=== PATIENT | male | born 1960 | race Caucasian/White ===

== ENCOUNTER → 2016-08-18 | Outpatient (CLI) | payer OTHER ==
[2016-08-18 08:12] LABS: ALKALINE PHOSPHATASE 62 U/L (45-117); BILIRUBIN, TOTAL 0.8 mg/dl (0.2-1.0); BUN 18 mg/dl (7-24); CARBON DIOXIDE 26 mmol/L (21-32); CHLORIDE 108 mmol/L (98-107); CHOLESTEROL 104 mg/dL (<200); EST GLOM FILT AFRICAN AMERICAN > 60 ml/min; GLUCOSE 160 mg/dL (65-99); HDL CHOLESTEROL 20 mg/dl (40-60); LDL CHOLESTEROL 6 mg/dL (9-159); POTASSIUM 4.2 mmol/L (3.5-5.1); SGOT/AST 38 IU/L (3-35); SGPT/ALT 77 U/L (12-78); SODIUM 143 mmol/L (136-145); TOTAL PROTEIN 7.9 gm/dL (6.4-8.2); TRIGLYCERIDES 390 mg/dl (<150); VLDL CHOLESTEROL 78 mg/dL (6-40)
[2016-08-18 08:20] LABS: HEMOGLOBIN A1c 8.4 % (4.8-5.6)
== END | disposition home or self-care (01) ==
LOC: LAB 07:09
PROVIDERS: Internal Medicine Endocrinology, Diabetes & Metabolism
DX: E11.65 Type 2 diabetes mellitus with hyperglycemia (principal); E29.1 Testicular hypofunction

== ENCOUNTER → 2016-12-22 | Outpatient (CLI) | payer OTHER ==
[2016-12-22 08:03] LABS: ALBUMIN 3.7 gm/dl (3.1-4.5); ALKALINE PHOSPHATASE 57 U/L (45-117); BILIRUBIN, TOTAL 0.5 mg/dl (0.2-1.0); BUN 11 mg/dl (7-24); CARBON DIOXIDE 27 mmol/L (21-32); CHLORIDE 105 mmol/L (98-107); CHOLESTEROL 140 mg/dL (<200); EST GLOM FILT AFRICAN AMERICAN > 60 ml/min; GLUCOSE 180 mg/dL (65-99); HDL CHOLESTEROL 19 mg/dl (40-60); HEMOGLOBIN A1c 8.1 % (4.8-5.6); POTASSIUM 4.4 mmol/L (3.5-5.1); SGOT/AST 35 IU/L (3-35); SGPT/ALT 68 U/L (12-78); SODIUM 139 mmol/L (136-145); TOTAL PROTEIN 7.8 gm/dL (6.4-8.2); TRIGLYCERIDES 544 mg/dl (<150)
== END ==
LOC: LAB 06:56
PROVIDERS: Internal Medicine Endocrinology, Diabetes & Metabolism
DX: E11.65 Type 2 diabetes mellitus with hyperglycemia (principal)

== ENCOUNTER → 2017-03-19 | Outpatient (CLI) | payer OTHER | END | disposition home or self-care (01) | LOC: CT 09:34 | DX: N20.0 Calculus of kidney (principal); K80.20 Calculus of gallbladder without cholecystitis without obstruction; K76.0 Fatty (change of) liver, not elsewhere classified ==

== ENCOUNTER 2018-09-19 09:42 | Inpatient (IN) | payer OTHER ==
[~2018-09-19] VITALS: Ht 187.9 cm; Wt 147.0 kg
[2018-09-19] VITALS (15 sets, daily range): BP systolic 86–140; BP diastolic 36–86
--- NOTE | ~2018-09-19 | DS ---
[place], [place] DISCHARGE SUMMARY [id number] #: [id number] ROOM: 411 DOCTOR: SEBAS GARNICA MD BIRTHDATE: [birth year] DOS: 09/21/2018 DIAGNOSES: 1. New onset atrial fibrillation with rapid ventricular response, converted to sinus rhythm. 2. Coronary artery disease with history of stent placement. 3. Type 2 diabetes mellitus, insulin-dependent. 4. Mixed hyperlipidemia. HOSPITAL COURSE: This patient is a 57-year-old. It was noted that his heart rate was in the 150s while he was checking his blood pressure, called Dr. Bajwa who advised that he be sent to the Emergency Room. In the ER, he was found to be in new onset AFib with rapid ventricular response, given IV Cardizem and admitted. After admission, he had been continued on IV Cardizem, IV heparin protocol. He did become hypotensive. Dr. Gilliam did cut back on the Coreg and gave him IV fluids. His IV heparin has been discontinued and switched to Eliquis. He has converted to sinus rhythm and so the plan is to discharge him to home today. Eliquis is switched to Xarelto, which could be cheaper to get it from the hospital pharmacy. He is stable. He is advised to go back to work on Wednesday. His blood sugars are controlled. The patient feels olanzapine was responsible for his symptomatology. He has read side effects online and he is advised not to take the medication and discuss with his PCP about it. DISCHARGE MEDICATIONS: Flecainide 50 b.i.d., Coreg 6.25 twice a day, Xarelto 20 daily, testosterone IM injections once a month on Wednesdays, insulin sliding scale as well as pump, sertraline 50 daily, telmisartan 80 mg daily, simvastatin 80 daily. SEBAS GARNICA MD CM:DISCHARG [id number] SEBAS GARNICA MD 09/21/18 1445 interface
--- NOTE | ~2018-09-19 | WRIGHTHP ---
[place], [place] PATIENT HISTORY AND PHYSICAL EXAM [id number] UN[facility] #: [id number] ROOM: 411 DOCTOR: SEBAS GARNICA MD BIRTHDATE: [birth year] DOS: 09/19/2018 HISTORY OF PRESENT ILLNESS: The patient is 57 years old, not known to me. The patient has known history of coronary artery disease, was out of town when he was checking his blood pressure and noted his heart rate is 151. He researched thought it was olanzapine causing his heart rate issues, but when he came back, he called Dr. Gilliam's office who advised that he go to the Emergency Room where he was seen and was found to be in rapid AFib, which is a new onset. He denies having any chest pains or palpitations, does not have any fever or chills, does not have any abdominal pain, nausea, any emesis. Even when his heart rate was 150, he did not experience any symptoms at all. PAST MEDICAL HISTORY: Significant for: 1. Coronary artery disease with history of 2 stents placement about 7 years ago. 2. Type 2 diabetes mellitus, insulin-dependent. MEDICATIONS: Medications that he is on are Plavix, carvedilol, sertraline, simvastatin, telmisartan, testosterone, and insulin pump. SOCIAL HISTORY: Nonsmoker and does not use any alcohol. He is . PHYSICAL EXAMINATION: GENERAL: He is awake and alert and oriented, in no distress. VITAL SIGNS: Graphic trend shows a pressure of 120/50, pulse of 68, respirations 20, temperature 97.4. LUNGS: Diminished breath sounds. Clear. HEART: Irregular. ABDOMEN: Obese, soft, nontender. EXTREMITIES: Without any edema. LABORATORY DATA: EKG showed AFib, rhythm is still AFib this morning, heart rate has slowed down since yesterday. Troponin 1.010 and 1.140. ASSESSMENT AND PLAN: 1. New onset atrial fibrillation with rapid ventricular response. The patient was placed on IV Cardizem and IV heparin protocol. Dr. Gilliam was consulted and he feels that the patient would be a candidate for chronic anticoagulation. He is planning to do a cardioversion tomorrow if he does not convert. 2. Benign hypertension, controlled. 3. Coronary artery disease with elevated enzymes, most likely rate related. This is not a myocardial infarction. 4. Type 2 diabetes mellitus, insulin-dependent. Blood sugars are being checked and they are controlled. [place], [place] PATIENT HISTORY AND PHYSICAL EXAM NAME: [facility] [id number] UNIT #: [id number] ROOM: [facility] DOCTOR: SEBAS GARNICA MD BIRTHDATE: [birth year] SEBAS GARNICA MD CM:HISPHYS:PATIENT HISTORY AND PHYSICAL EXAMINATION [id number] ESBAS GARNICA MD 09/27/18 0758 interface
--- NOTE | ~2018-09-19 | PR ---
[place], [place] PROGRESS NOTE [id number] #: [id number] ROOM: 411 DOCTOR: JUANY LORA MD BIRTHDATE: [birth year] DOS: 09/21/2018 SUBJECTIVE: He is feeling well. He is not short of breath and slept well without any difficulty breathing and no dizziness or lightheaded when he stood up this morning. The last couple of days, blood pressure had been running rather low. He was on carvedilol and diltiazem, both of these were held yesterday. He had atrial flutter with rate that was difficult to control. Yesterday, he reverted to normal sinus rhythm and once that happened, he was started on flecainide 50 mg b.i.d., which he has tolerated nicely. PHYSICAL EXAMINATION: GENERAL: The patient is very pleasant, alert, oriented. He is a very large man. Complexion is fine. He is not tachypneic. VITAL SIGNS: Pulse is regular at 76 beats per minute, blood pressure is 107/62. NECK: JVP is normal. LUNGS: He is quite crackles and rhonchi in both lungs with reduced breath sound, but only trace edema in the lower extremities. LABORATORY DATA: Monitor shows normal sinus rhythm. An ECG done this morning showed normal sinus rhythm at 75 beats per minute with normal QTc of 447 milliseconds. IMPRESSION: This patient had atrial flutter with rapid rate, in sinus rhythm returned yesterday and he is tolerating flecainide fine and he was started on Eliquis as well. The neck blood pressure, which is asymptomatic today. RECOMMENDATIONS: 1. The patient should continue flecainide 50 b.i.d., dose will be increased should he revert back to atrial flutter. 2. Eliquis/anticoagulation on chronic basis. 3. Dose of carvedilol has been decreased to 6.25 mg b.i.d. and if he ever gets rapid rate, he can take 25 mg tablet to control the rate. 4. Chest x-ray is being done to make sure there is no pulmonary congestion or edema. 5. The patient may be discharged home later this evening with a followup with me in 2-4 weeks. [place], [place] PROGRESS NOTE NAME: HALEY GARCIA UNIT #: [id number] ROOM: 411 DOCTOR: JUANY LORA MD BIRTHDATE: [birth year] JUANY LORA MD CM:PNAMILCAR 0726 20 JUANY LORA MD 09/21/18 2020 interface
--- NOTE | ~2018-09-19 | EKG ---
[place], [place] ELECTROCARDIOGRAM REPORT NAME: HALEY GARCIA UNIT #: [id number] ROOM: 411 DOCTOR: JOSE DRAFT REPORT BIRTHDATE: [address] [facility] Test Date: 2018-09-19 Test Time: 10:02:41 Pat Name: HALEY GARCIA Department: Room: 411 Gender: M Alignment Mechanic: : 1960 Requested By: EUSEBIO GARLAND Order Number: [id number] Reading MD: Pardeep Gilliam MD Measurements Intervals [place] Rate: 151 P: 0 [place]: QRS: -24 QRSD: 88 T: 66 QT: 286 QTc: 454 Interpretive Statements Atrial flutter wirh 2:1 AV conduction Inferior infarct, old Baseline wander in lead(s) V2,V4 Electronically Signed On 09-21-2018 4:03:03 PDT by Pardeep Gilliam MD CM:EKGRPT:ELECTROCARDIOGRAM REPORT [id number] EUSEBIO CHÁVEZ DRAFT REPORT EUSEBIO GARLAND DO
--- NOTE | ~2018-09-19 | PR ---
[place], [place] PROGRESS NOTE NAME[id number] UNIT #: [id number] ROOM: 411 DOCTOR: SEBAS GARNICA MD BIRTHDATE: [birth year] DOS: 09/21/2018 SUBJECTIVE: The patient is doing well, does not have any complaints today. He had converted to sinus rhythm yesterday afternoon. OBJECTIVE: VITAL SIGNS: Blood pressure is 102/64, pulse of 73, respirations 20, temperature 97.5. He did become hypotensive and was given IV fluids. The Coreg dosage has been cut down by Dr. Gilliam this morning. LUNGS: Diminished breath sounds. Clear. HEART: Regular. ABDOMEN: Obese. EXTREMITIES: Without any edema. ASSESSMENT AND PLAN: 1. Hypotension, possibly medication related. Coreg dosage was cut back. Discussed with Dr. Gilliam this morning. 2. New-onset atrial fibrillation with rapid ventricular response, converted to sinus rhythm, on flecainide and we will add Xarelto and Plavix, which has just been discontinued. I advised the patient that he could go back to work on Wednesday and to see his PCP as an outpatient. SEBAS GARNICA MD CM:PNTRANS [id number] SEBAS GARNICA MD 09/22/18 0011 interface
--- NOTE | ~2018-09-19 | EKG ---
[place], [place] ELECTROCARDIOGRAM REPORT NAME: HALEY GARCIA UNIT #: [id number] ROOM: 411 DOCTOR: JOSE DRAFT REPORT BIRTHDATE: [birth year] [facility] Test Date: 2018-09-19 Test Time: 10:41:12 Pat Name: HALEY GARCIA Department: Room: 411 Gender: M Sustainable Products Marketing Manager: Na Millard : 1960 Requested By: EUSEBIO GARLAND Order Number: [id number] Reading MD: Pardeep Gilliam MD Measurements Intervals [place] Rate: 135 P: [place]: QRS: 8 QRSD: 88 T: 23 QT: 349 QTc: 524 Interpretive Statements Atrial flutter Inferior infarct, old Prolonged QT interval Electronically Signed On 09-21-2018 4:03:32 PDT by Pardeep Gilliam MD CM:EKGRPT:ELECTROCARDIOGRAM REPORT [id number] EUSEBIO CHÁVEZ DRAFT REPORT EUSEBIO GARLAND DO
--- NOTE | ~2018-09-19 | EKG ---
[place], [place] ELECTROCARDIOGRAM REPORT NAME: HALEY GARCIA UNIT #: [id number] ROOM: 411 DOCTOR: JOSE DRAFT REPORT BIRTHDATE: [birth year] [facility] Test Date: 2018-09-20 Test Time: 13:22:35 Pat Name: HALEY GARCIA Department: Room: 411 1 Gender: M Shoe Repairer: Na Millard : 1960 Requested By: JUANY LORA Order Number: [id number] Reading MD: Juany Lora MD Measurements Intervals [place] Rate: 71 P: 54 [place]: 187 QRS: -13 QRSD: 87 T: 9 QT: 396 QTc: 431 Interpretive Statements Sinus rhythm Atrial premature complex Abnormal R-wave progression, early transition Inferior infarct, old Baseline wander in lead(s) V1,V2 Electronically Signed On 09-21-2018 4:04:15 PDT by Juany Lora MD CM:EKGRPT:ELECTROCARDIOGRAM REPORT [id number] JUANY GARCIA DRAFT REPORT JUANY LORA MD
--- NOTE | ~2018-09-19 | EKG ---
[place], [place] ELECTROCARDIOGRAM REPORT NAME: HALEY GARCIA UNIT #: [id number] ROOM: 411 DOCTOR: JOSE DRAFT REPORT BIRTHDATE: [birth year] [facility] Test Date: 2018-09-21 Test Time: 06:57:47 Pat Name: HALEY GARCIA Department: Room: 411 1 Gender: M Assurance Engineer: Na Millard : 1960 Requested By: JUANY LORA Order Number: [id number] Reading MD: Juany Lora MD Measurements Intervals [place] Rate: 75 P: 60 [place]: 191 QRS: -17 QRSD: 94 T: 16 QT: 400 QTc: 447 Interpretive Statements Sinus rhythm Atrial premature complex Inferior infarct, old Baseline wander in lead(s) V2 Electronically Signed On 09-29-2018 7:04:12 PDT by Juany Lora MD CM:EKGRPT:ELECTROCARDIOGRAM REPORT [id number] JUANY LORA MD EPIPHANY DRAFT REPORT JUANY LORA MD
--- NOTE | ~2018-09-19 | CON ---
[place], [place] REPORT OF CONSULTATION NAME[id number] UNIT #: [id number] ROOM: 411 DOCTOR: JUANY LORA MD BIRTHDATE: [birth year] DOS: 09/19/2018 HISTORY OF PRESENT ILLNESS: This is a 57-year-old -[place] man with a history of atrial flutter and he has had a burst of palpitations for the last 20+ years. He also has type 2 diabetes mellitus, essential hypertension, and morbid obesity. He has never had a heart attack, heart failure. He has never had a CVA or any peripheral embolization, never had COPD, GERD, or GI bleeding and no kidney problems. Father had brain tumor, but no stroke or coronary artery disease in the family members. I saw him in the office, not long ago for assessment and followup of atrial flutter. He told me that he has a burst of palpitations that lasted only for a few seconds, sometimes a few minutes, and then go away and has never had any persistent episodes. However, he came to the ER because of 5 days of palpitations and the heart rate was run 150. He claims he did not have any breathing difficulty, any chest pain or pressure in the chest, and no loss of consciousness and the swelling of the lower extremity, orthopnea. He did not have any neurological symptoms. He has no nausea, abdominal pain or blood in the stools and no fever, chills, or shivering. He has not had any bleeding from anywhere and is not planning any surgery. HOME MEDICATIONS: Included carvedilol 12.5 mg b.i.d. and clopidogrel 75 mg daily, sertraline 50 mg daily, simvastatin 80 mg daily, telmisartan 80 mg daily, testosterone, cypionate 200 mg IM and insulin. SOCIAL HISTORY: He does not smoke nor does he drink alcoholic beverages. Works night time babysitter and is . PHYSICAL EXAMINATION: GENERAL: This revealed the patient who is a very large, moderately obese, is muscular as well. Temperature is normal. There is no thyromegaly or finger clubbing. He is not cyanotic or jaundiced. He looks well. VITAL SIGNS: Pulse is irregular at 120 beats per minute, blood pressure 129/79. NECK: JVP is normal. AJR is negative. There is no carotid bruit. HEART: There is no cardiomegaly, no murmurs are present. EXTREMITIES: There is no friction rub, has good pedal pulses, and only trace edema in the pretibial areas. RESPIRATORY: Lungs are clear to percussion and auscultation with excellent breath sounds. ABDOMEN: Supple, nontender. LABORATORY DATA: Initial ECG demonstrated atrial flutter with 2:1 AV conduction with ventricular rate of 151. Second ECG while on Cardizem showed a heart rate of 135 beats per minute with clear flutter waves. Chest x-ray was unremarkable. [place], [place] REPORT OF CONSULTATION NAME: HALEY GARCIA UNIT #: [id number] ROOM: 411 DOCTOR: JUANY LORA MD BIRTHDATE: [birth year] Troponin I level was 0.9 and gone up to 1.0. WBC is 7.7, hemoglobin 15.2, sodium 141, potassium 4.2. Renal function is normal. Magnesium 1.9 and lipid profile is excellent with an LDL of 67, total cholesterol of 106, and triglyceride 91. TSH is 2.2, which is normal. IMPRESSION: 1. This patient has had atrial flutter with rapid ventricular rate for 5 days and has not caused any adverse outcome, namely no cardiac decompensation or any embolic complication. 2. His CHADS score is significant because of the presence of hypertension and diabetes mellitus. Therefore, chronic anticoagulation is warranted. 3. The patient is on IV Cardizem dose, which will be increased to control the heart rate regularly and dose of carvedilol is being increased to 20 from 5 mg b.i.d. 4. Hopefully, the heart rate will slow down and he will revert back to normal sinus rhythm. If he does not do so while on heparin, I would like to do electrical cardioversion on Wednesday morning, i.e., day after tomorrow and I had explained the procedure to him and his . They understand. I also discussed this with his nurse. JUANY LORA MD CM:CONSTR:REPORT OF CONSULTATION 1729 09/20/18 0523 interface
--- NOTE | ~2018-09-19 | PR ---
[place], [place] PROGRESS NOTE NAME: [id number] UNIT #: [id number] ROOM: 411 DOCTOR: RAFIQ ALCANTARA MD BIRTHDATE: [birth year] DOS: 09/20/2018 SUBJECTIVE: The patient was seen by Dr. Gilliam yesterday. The patient is in persistent atrial flutter. However, the heart rate is very well controlled. His ejection fraction was preserved. OBJECTIVE: VITAL SIGNS: Blood pressure is 108/60, heart rate is 70, atrial flutter. NECK: Supple, no JVD. LUNGS: Diminished breath sounds. HEART: Sounds are irregularly irregular. LABORATORY DATA: Hemoglobin 15.2, hematocrit 45.7. Last electrolytes were within normal limits. Troponin is 1.140, the patient was seen by Dr. Gilliam probably because of the rapid rate. Echocardiogram was done by Dr. Gilliam, ejection fraction was 60%. IMPRESSION AND PLAN: Atrial flutter, now controlled ventricular response, elevated troponin. The patient knows Dr. Gilliam very well and beta blockers have been increased. If the heart rate is normal, stop the Cardizem drip. The patient rescheduled for an synchronized electrical cardioversion in the morning. RAFIQ ALCANTARA MD CM:PNTRANS [id number] RAFIQ ALCANTARA MD 09/20/18 1013 interface
[2018-09-19 10:01] LABS: BASO % 0.4 % (0.0-1.0); EOS # 0.1 10*3/uL (0.0-0.4); EOS % 1.8 % (1.0-4.0); HEMATOCRIT 45.7 % (42.0-52.0); HEMOGLOBIN 15.2 g/dl (14.0-18.0); LYMPH # 1.4 10*3/uL (1.3-4.4); LYMPH % 18.4 % (27.0-41.0); MEAN CELL VOLUME 90.3 fl (80.0-94.0); MEAN CORPUSCULAR HGB CONC 33.3 g/dl (33.0-37.0); MEAN PLATELET VOLUME 9.9 fl (9.6-12.3); MONO # 0.7 10*3/uL (0.1-1.0); MONO % 9.5 % (3.0-9.0); NEUT # 5.3 10*3/uL (2.3-7.9); NEUT % 69.6 % (47.0-73.0); PLATELET COUNT AUTOMATED 146 10*3/uL (130-400); RED BLOOD COUNT 5.06 10*6/uL (4.50-5.90); RED CELL DISTRI WIDTH 14.6 % (0-14.5); WHITE BLOOD COUNT 7.7 10*3/uL (4.8-10.8)
[2018-09-19 10:17] LABS: ALBUMIN 3.5 gm/dl (3.1-4.5); ALKALINE PHOSPHATASE 58 U/L (45-117); BUN 18 mg/dl (7-24); CHLORIDE 109 mmol/L (98-107); CREATININE 0.96 mg/dL (0.70-1.30); POTASSIUM 4.2 mmol/L (3.5-5.1); SGOT/AST 35 IU/L (3-35); SGPT/ALT 62 U/L (12-78); SODIUM 141 mmol/L (136-145); TOTAL PROTEIN 7.5 gm/dL (6.4-8.2)
[2018-09-19 10:21] LABS: TROPONIN I 0.624 ng/ml (<0.045)
--- NOTE | 2018-09-19 10:21 | NUR ---
DR GARLAND NOTIFIED OF ELEVALED TROP LEVEL. NO NEW ORDERS AT THIS TIME.
--- NOTE | 2018-09-19 10:32 | NUR ---
DR GARLAND VERBALLY ORDERS A 10MG BOLUS OF CARDIZEM BUT NO DRIP.
--- NOTE | 2018-09-19 10:40 | NUR ---
DR GARLAND NOW VERBALLY ORDERS ANOTHER CARDIZEM BOLUS AND THEN A DRIP AT 5MG/HR.
--- NOTE | 2018-09-19 11:39 | NUR ---
AWAITING OPPORTUNITY TO TRANSPORT PT TO FLOOR, PT'S NURSE IS AT LUNCH.
--- NOTE | 2018-09-19 12:00 | NUR ---
A 57, admitted to , under the services of SEBAS Meng MD with a diagnosis of AFIB RVR. Chief complaint is HIGH PULSE READINGS AT HOME ON AUTOMATIC BLOOD PRESSURE MACHINE FOR PAST 5 DAYS. Patient arrived via stretcher from ER. Monitor applied. Initial assessment completed. Vital signs taken and recorded. SEBAS MENG MD notified of admission to the unit. Orders received. See assessment for past medical history, medications and allergies. Patient and/or family oriented to unit. [facility]. Clothing/patient valuable form completed. JAYLIN BLEVINS
[2018-09-19] MEDS ORDERED: SIMVASTATIN80 MG PO (12:20)
[2018-09-19] MEDS ORDERED: CARVEDILOL12.5 MG PO (12:22)
[2018-09-19] MEDS ORDERED: CLOPIDOGREL75 MG PO (12:24)
[2018-09-19] MEDS ORDERED: SERTRALINE HYDR50 MG PO (12:24)
[2018-09-19] MEDS ORDERED: TESTOSTERO200 MG/1 M IM (12:33)
[2018-09-19] MEDS ORDERED: TELMISARTAN80 M1 PO (12:33)
[2018-09-19] MEDS ORDERED: HUMULIN R100 UNIT/1 IJ (12:36)
--- NOTE | 2018-09-19 13:14 | NUR ---
DR. LORA NOTIFIED OF CONSULT AND WILL SEE PATIENT TOMORROW. OBTAINED ORDER TO TITRATE CARDIZEM DRIP UP TO 10ML/HR NEEDED.
[2018-09-19 13:30] LABS: FREE T4 0.97 ng/dl (0.76-1.46)
[2018-09-19 13:34] LABS: TROPONIN I 0.905 ng/ml (<0.045)
[2018-09-19 13:35] LABS: THYROID STIM HORMONE (HS) 2.22 uIU/ml (0.358-4.75)
--- NOTE | 2018-09-19 13:36 | NUR ---
DR. LORA NOTIFIED OF MOST RECENT TROPONIN I RESULT.
--- NOTE | 2018-09-19 15:11 | NUR ---
PTT 24.0. STARTING HEPARIN DRIP VIA LEFT ARM IV HEPLOCK AT 12/UNITS/KG/HR OR 17.6ML/HR AFTER 5,000 UNIT BOLUS. NEXT PTT TO BE DRAWN AT 2100 PER PROTOCOL.
--- NOTE | 2018-09-19 17:05 | NUR ---
DR. LORA IN TO SEE PATIENT RE: PLAN OF CARE AND IS AWARE OF MOST RECENT TROPONIN I RESULT.
--- NOTE | 2018-09-19 17:14 | NUR ---
PER DR. LORA, IF RATE OF AFLUTTER NOT CONTROLLED BY TREATMENT WITH COREG (INCREASED DOSE) AND CARDIZEM DRIP, PATIENT MAY NEED KANE PROCEDURE.
--- NOTE | 2018-09-19 19:25 | NUR ---
PATIENT C/O DIZZINESS. DENIES ANY CHEST PAIN OR PALPITATIONS. MANUAL BP 86/42 HR 177. BS 105.
--- NOTE | 2018-09-19 19:30 | NUR ---
DR LORA CALLED REGUARDING PATIENT'S BP. NEW ORDERS RECEIVED- SEE EMAR.
--- NOTE | 2018-09-19 19:49 | NUR ---
DR LORA CALLED WITH CRITICAL TROPONIN 1.140. NO NEW ORDERS AT THIS TIME.
--- NOTE | 2018-09-19 21:10 | NUR ---
FLUID BOLUS COMPLETE, BP 100/52. NS AT 50CC/HR HUNG ORDERED. WILL CONTINUE TO MONITOR.
--- NOTE | 2018-09-19 22:10 | NUR ---
APTT 30.9- HEPARIN INCREASED TO 14U/KG/HR. APTT ORDERED FOR 0530.
--- NOTE | 2018-09-19 22:10 | NUR ---
APTT 30.9- NO CHANGES TO HEPARIN AT THIS TIME.
[2018-09-20] VITALS (11 sets, daily range): BP systolic 68–120; BP diastolic 42–62
--- NOTE | 2018-09-20 00:25 | NUR ---
24 HR chart check completed.
--- NOTE | 2018-09-20 03:02 | NUR ---
PATIENT RESTING WITH EYES CLOSED BUT STATING HE'S NOT GETTING ANY SLEEP BECAUSE OF LIGHT HEADEDNESS AND NOT BEING COMFORTABLE. REMAINS IN AFLUTTER WITH RATE 90'S-100'S. CARDIZEM, HEPARIN, AND NS CONTINUE RUNNING AT THIS TIME. CALL TRENT WITHIN REACH. WILL CONTINUE TO MONITOR.
--- NOTE | 2018-09-20 05:00 | NUR ---
HR HAS MAINTAINED 70-80 FOR THE LAST HOUR. CARDIZEM IV DRIP DECREASED FROM 10 ML/HR TO 5 ML/HR. WILL MONITOR HEART RATE.
--- NOTE | 2018-09-20 06:30 | NUR ---
APTT 31.1- HEPARIN INCREASED TO 16U/KG/HR PER PROTOCOL. APTT ORDERED 1230.
--- NOTE | 2018-09-20 06:40 | NUR ---
APTT 31.1 - HEPARIN INCREASED TO 14UNITS/KG/HR.
--- NOTE | 2018-09-20 07:05 | NUR ---
RECEIVED CALL FROM DR ALCANTARA. WANTED TO KNOW IF PATIENT IS STILL IN AFLUTTER AND WANTS CARDIOVERSION SCHEDULED FOR TOMORROW (WEDNESDAY) 09/21/18.
--- NOTE | 2018-09-20 08:30 | NUR ---
Mutual Fund Accountant in to talk to patient. Patient states lives at home with his . There are 13 steps in the home. Physician: Dr. Shant Patricio Pharmacy: [facility] [place] Home health services: none Patient's level of ADLs: INDEPENDENT Patient has working utilities: yes DME: none Follow-up physician's appointment after d/c: he prefers to make his own follow up appt after discharge Does patient want to access PORTAL?: no Discharge plan discussed with patient and his who is sitting at the bedside. He lives at home with his . He is independent in his ADLs and ambulation. Discussed home health care services and he denies any home needs at this time. Discussed about having his medications filled here at the hospital. Instructed he would be able to have his medications filled for one year and then he would need to follow up with the resident clinic on the first floor. He verbalized an understanding. When medically stable he will be discharged to home. BURAK MEZA
--- NOTE | 2018-09-20 09:31 | NUR ---
PATIENT C/O EXTREME DIZZINESS; HR AFLUTTER/IRREGULAR RATE 70'S ON CARDIZEM DRIP AT 5ML/HR. PHONED DR. LORA FOR ORDER TO STOP CARDIZEM DRIP AND SCHEDULE KANE W/CARDIOVERSION TOMORROW AT 7AM. CARDIZEM DRIP STOPPED AND PATIENT INFORMED, HER VERBALIZES UNDERSTANDING.
--- NOTE | 2018-09-20 11:01 | NUR ---
HELD AM COZAAR FOR LOW BLOOD PRESSURES, SEE VITAL SIGNS FLOW SCREEN.
--- NOTE | 2018-09-20 12:56 | NUR ---
ARRHYTHMIA HAS CONVERTED FROM AFLUTTER TO NSR 70'S/REGULAR. PATIENT C/O DIZZINESS AND MANUAL BLOOD PRESSURE 68/42. DR. LORA NOTIFIED AND ORDER OBTAINED FOR IVF BOLUS OF NSS X 1 LITER AND ENCOURAGE PO FLUID INTAKE.
--- NOTE | 2018-09-20 19:00 | NUR ---
PATIENT UP IN CHAIR, REPORTS NO LONGER DIZZY.
--- NOTE | 2018-09-20 20:23 | NUR ---
PATIENT RESTING IN CHAIR AT BEDSIDE WITH VISITOR AT BEDSIDE. NO NEEDS MADE. DENIES CHEST PAIN, DIZZINESS, OR SHORTNESS OF BREATH. BED IN LOWEST POSITION, CALL LIGHT IN REACH
--- NOTE | 2018-09-20 21:56 | NUR ---
DR ALCANTARA COVERING FOR DR LORA. MADE AWARE OF PATIENT'S BLOOD PRESSURE BEING LOW AND DUE FOR COREG. ALSO MADE AWARE OF NEW AFIB RVR. DR ALCANTARA STATES TO HOLD THE BLOOD PRESSURE MEDICATIONS TONIGHT.
--- NOTE | 2018-09-20 22:43 | NUR ---
BLOOD SUGAR CHECK 119. PATIENT STATES HE DOES NOT BOLUS WITH THIS CHECK.
[2018-09-21] VITALS: BP 109/56
--- NOTE | 2018-09-21 01:33 | NUR ---
24 HR chart check completed.
--- NOTE | 2018-09-21 02:54 | NUR ---
PATIENT RESTING IN CHAIR AT BEDSIDE WITH EYES CLOSED. RESPS EASY AND REGULAR. BED IN LOWEST POSITION, CALL LIGHT IN REACH
[2018-09-21 04:00] VITALS: BP 107/62
--- NOTE | 2018-09-21 06:39 | NUR ---
PATIENT'S BLOOD SUGAR CHECK 65. ORANGE JUICE AND PEARS GIVEN
[2018-09-21 07:59] VITALS: BP 102/64
[2018-09-21] MEDS ORDERED: HUMULIN R100 UNIT/1 IJ (08:32)
[2018-09-21] MEDS ORDERED: XARE20MG PO (08:32)
[2018-09-21] MEDS ORDERED: TELMISARTAN80 M1 PO (08:32)
[2018-09-21] MEDS ORDERED: SERTRALINE HYDR50 MG PO (08:32)
[2018-09-21] MEDS ORDERED: CARVEDILOL6.25 MG PO (08:32)
[2018-09-21] MEDS ORDERED: SIMVASTATIN80 MG PO (08:32)
[2018-09-21] MEDS ORDERED: FLECAINIDE ACE100 M1 PO (08:32)
--- NOTE | 2018-09-21 09:20 | NUR ---
Discharge instructions reviewed with patient/family. Patient receptive and verbalizes understanding. Follow-up care arranged. Written instructions given to patient/family. DONA NEWMAN
== END 2018-09-21 09:20 | disposition home or self-care (01) | DRG 309 ==
LOC: ED 09:42 → 4E 11:31 → EDHOLD 11:31 → 4E 11:36
PROVIDERS: Emergency Medicine; ADMIT Internal Medicine
DX: I48.91 Unspecified atrial fibrillation (principal); Z68.41 Body mass index [BMI] 40.0-44.9, adult; I10 Essential (primary) hypertension; I48.92 Unspecified atrial flutter; I25.10 Atherosclerotic heart disease of native coronary artery without angina pectoris; E11.9 Type 2 diabetes mellitus without complications; E66.01 Morbid (severe) obesity due to excess calories; I95.9 Hypotension, unspecified; E78.2 Mixed hyperlipidemia; Z79.4 Long term (current) use of insulin; Z95.5 Presence of coronary angioplasty implant and graft; Z80.8 Family history of malignant neoplasm of other organs or systems

== ENCOUNTER → 2018-11-08 | Outpatient (CLI) | payer OTHER ==
[~2018-11-08] MED LIST: CARVEDILOL12.5 MG PO; CARVEDILOL6.25 MG PO; CLOPIDOGREL75 MG PO; FLECAINIDE ACE100 M1 PO; HUMULIN R100 UNIT/1 IJ; SERTRALINE HYDR50 MG PO; SIMVASTATIN80 MG PO; TELMISARTAN80 M1 PO; TESTOSTERO200 MG/1 M IM; XARE20MG PO
== END | disposition home or self-care (01) ==
LOC: RESCLI 00:26
DX: E11.65 Type 2 diabetes mellitus with hyperglycemia (principal); I25.10 Atherosclerotic heart disease of native coronary artery without angina pectoris; L20.89 Other atopic dermatitis; I48.0 Paroxysmal atrial fibrillation; I10 Essential (primary) hypertension; E78.5 Hyperlipidemia, unspecified; F32.9 Major depressive disorder, single episode, unspecified; Z79.4 Long term (current) use of insulin; Z79.899 Other long term (current) drug therapy; Z87.891 Personal history of nicotine dependence; Z88.8 Allergy status to other drugs, medicaments and biological substances

== ENCOUNTER → 2019-01-17 | Outpatient (CLI) | payer OTHER | END | disposition home or self-care (01) | LOC: RESCLI 13:19 | DX: E11.65 Type 2 diabetes mellitus with hyperglycemia (principal); E78.1 Pure hyperglyceridemia; I10 Essential (primary) hypertension; E78.2 Mixed hyperlipidemia; E55.9 Vitamin D deficiency, unspecified; I25.10 Atherosclerotic heart disease of native coronary artery without angina pectoris; I48.0 Paroxysmal atrial fibrillation; E78.5 Hyperlipidemia, unspecified; F32.9 Major depressive disorder, single episode, unspecified; Z79.4 Long term (current) use of insulin; Z79.899 Other long term (current) drug therapy ==

== ENCOUNTER → 2019-05-02 | Outpatient (CLI) | payer OTHER | END | disposition home or self-care (01) | LOC: RESCLI 01:25 | DX: E11.65 Type 2 diabetes mellitus with hyperglycemia (principal); I48.0 Paroxysmal atrial fibrillation; E78.1 Pure hyperglyceridemia; I10 Essential (primary) hypertension; E78.2 Mixed hyperlipidemia; E55.9 Vitamin D deficiency, unspecified; G62.9 Polyneuropathy, unspecified; F32.9 Major depressive disorder, single episode, unspecified; Z96.41 Presence of insulin pump (external) (internal); Z79.4 Long term (current) use of insulin; Z79.899 Other long term (current) drug therapy; Z90.89 Acquired absence of other organs ==

== ENCOUNTER → 2019-12-19 | Outpatient (CLI) | payer OTHER | END | disposition home or self-care (01) | LOC: LAB 15:36 | DX: E78.5 Hyperlipidemia, unspecified (principal) ==

== ENCOUNTER → 2020-03-26 | Outpatient (CLI) | payer OTHER | END | disposition home or self-care (01) | LOC: RESCLI 02:24 | PROVIDERS: ATTEND Internal Medicine | DX: Z12.11 Encounter for screening for malignant neoplasm of colon (principal); E11.65 Type 2 diabetes mellitus with hyperglycemia; E78.1 Pure hyperglyceridemia; E55.9 Vitamin D deficiency, unspecified; I10 Essential (primary) hypertension; G62.9 Polyneuropathy, unspecified; F32.9 Major depressive disorder, single episode, unspecified; I48.0 Paroxysmal atrial fibrillation; E78.2 Mixed hyperlipidemia ==

== ENCOUNTER → 2020-05-23 | Outpatient (CLI) | payer OTHER | END | disposition home or self-care (01) | LOC: RAD 09:01 | PROVIDERS: ATTEND Family Medicine | DX: J18.9 Pneumonia, unspecified organism (principal) ==

== ENCOUNTER → 2020-07-09 | Outpatient (CLI) | payer OTHER | END | disposition home or self-care (01) | LOC: RESCLI 00:31 | PROVIDERS: ATTEND Student in an Organized Health Care Education/Training Program | DX: I48.0 Paroxysmal atrial fibrillation (principal); E11.65 Type 2 diabetes mellitus with hyperglycemia; I10 Essential (primary) hypertension; E78.2 Mixed hyperlipidemia; E78.1 Pure hyperglyceridemia; F32.9 Major depressive disorder, single episode, unspecified; E55.9 Vitamin D deficiency, unspecified; Z79.84 Long term (current) use of oral hypoglycemic drugs; Z79.899 Other long term (current) drug therapy; Z87.891 Personal history of nicotine dependence; Z98.890 Other specified postprocedural states ==

== ENCOUNTER → 2020-08-14 | Outpatient (CLI) | payer OTHER ==
[2020-08-14 08:13] LABS: ALBUMIN 3.9 gm/dl (3.1-4.5); ALKALINE PHOSPHATASE 42 U/L (45-117); BUN 22 mg/dl (7-24); CHLORIDE 108 mmol/L (98-107); CHOLESTEROL 142 mg/dL (<200); CREATININE 1.16 mg/dL (0.70-1.30); HDL CHOLESTEROL 19 mg/dl (40-60); POTASSIUM 4.9 mmol/L (3.5-5.1); SGOT/AST 44 IU/L (3-35); SGPT/ALT 101 U/L (12-78); SODIUM 138 mmol/L (136-145); TOTAL PROTEIN 7.9 gm/dL (6.4-8.2); TRIGLYCERIDES 619 mg/dl (<150)
[2020-08-15 09:07] LABS: CREATININE,URINE 47.8 mg/dL (Not Estab.)
== END | disposition home or self-care (01) ==
LOC: LAB 07:07
PROVIDERS: ATTEND Internal Medicine Endocrinology, Diabetes & Metabolism
DX: E11.65 Type 2 diabetes mellitus with hyperglycemia (principal); E55.9 Vitamin D deficiency, unspecified

== ENCOUNTER → 2020-09-18 | Outpatient (CLI) | payer OTHER | END | disposition home or self-care (01) | LOC: RESCLI 03:28 | PROVIDERS: ATTEND Internal Medicine | DX: F32.9 Major depressive disorder, single episode, unspecified (principal); I10 Essential (primary) hypertension; I48.0 Paroxysmal atrial fibrillation; E78.1 Pure hyperglyceridemia; E78.2 Mixed hyperlipidemia; E55.9 Vitamin D deficiency, unspecified; E11.65 Type 2 diabetes mellitus with hyperglycemia; Z79.84 Long term (current) use of oral hypoglycemic drugs; Z79.899 Other long term (current) drug therapy; Z98.890 Other specified postprocedural states; Z87.891 Personal history of nicotine dependence ==

== ENCOUNTER → 2021-01-31 | Outpatient (CLI) | payer OTHER | END | disposition home or self-care (01) | LOC: RESCLI 00:21 | PROVIDERS: ATTEND Internal Medicine | DX: F32.9 Major depressive disorder, single episode, unspecified (principal); I10 Essential (primary) hypertension; E11.65 Type 2 diabetes mellitus with hyperglycemia; I48.0 Paroxysmal atrial fibrillation; E78.1 Pure hyperglyceridemia; E78.2 Mixed hyperlipidemia; E55.9 Vitamin D deficiency, unspecified; Z79.84 Long term (current) use of oral hypoglycemic drugs; Z79.899 Other long term (current) drug therapy; Z98.890 Other specified postprocedural states ==

== ENCOUNTER 2021-06-05 05:31 | Emergency (ER) | payer OTHER ==
[~2021-06-05] VITALS: Ht 182.8 cm; Wt 148.6 kg
== END 2021-06-05 07:58 ==
LOC: ED 05:31
DX: I46.9 Cardiac arrest, cause unspecified (principal); I10 Essential (primary) hypertension; E11.9 Type 2 diabetes mellitus without complications; I48.91 Unspecified atrial fibrillation